=== PATIENT | male | born 1985 | race Caucasian/White ===

== ENCOUNTER → 2020-05-21 | Outpatient (CLI) | payer BC ==
[2020-05-21 11:39] LABS: ABSOLUTE LYMPHOCYTES (AUTO) 1.6 10^3/uL (0.5-4.7); ABSOLUTE MONOCYTES (AUTO) 0.3 10^3/uL (0.1-1.4); BASOPHILS % (AUTO) 0.5 % (0-2); HEMATOCRIT 49.7 % (37.9-51.0); LYMPHOCYTES % (AUTO) 40.5 % (13-45); MEAN CORPUSCULAR HEMOGLOBIN 31.7 pg (27.0-33.4); MEAN CORPUSCULAR HGB CONC 34.3 g/dL (32.0-36.0); MEAN CORPUSCULAR VOLUME 93 fl (80-97); MONOCYTES % (AUTO) 7.5 % (3-13); PLATELET COUNT 212 10^3/uL (150-450); RED BLOOD COUNT 5.36 10^6/uL (4.35-5.55); RED CELL DISTRIBUTION WIDTH 12.7 % (11.5-14.0); SEGMENTED NEUTROPHILS % (AUTO) 50.5 % (42-78); TOTAL CELLS COUNTED % (AUTO) 100 %
[2020-05-21 11:53] LABS: ALBUMIN 4.8 g/dL (3.5-5.0); ALKALINE PHOSPHATASE 38 U/L (38-126); ANION GAP 8 (5-19); ASPARTATE AMINO TRANSFERASE 35 U/L (17-59); BILIRUBIN,DIRECT 0.2 mg/dL (0.0-0.4); BILIRUBIN,TOTAL 0.6 mg/dL (0.2-1.3); BLOOD UREA NITROGEN 15 mg/dL (7-20); CALCIUM 9.3 mg/dL (8.4-10.2); CARBON DIOXIDE 30 mmol/L (22-30); CHLORIDE 102 mmol/L (98-107); CHOLESTEROL 165.69 mg/dL (0-200); GLUCOSE 97 mg/dL (75-110); POTASSIUM 4.8 mmol/L (3.6-5.0); TOTAL PROTEIN 7.7 g/dL (6.3-8.2); TRIGLYCERIDES 64 mg/dL (<150)
[2020-05-21 12:05] LABS: DIRECT LDL 103 mg/dL (<100)
== END ==
LOC: OD 10:35
PROVIDERS: ATTEND Psychiatry & Neurology Psychiatry
DX: F41.1 Generalized anxiety disorder (principal); F51.01 Primary insomnia; F90.2 Attention-deficit hyperactivity disorder, combined type; Z68.28 Body mass index [BMI] 28.0-28.9, adult; Z79.899 Other long term (current) drug therapy
CPT/HCPCS: 36415; 80053; 80061; 83036; 84443; 85025

== ENCOUNTER 2020-09-13 18:02 | Emergency (ER) | payer BC ==
[2020-09-13 18:11] VITALS: BP 176/94
--- NOTE | 2020-09-13 18:30 | ER Document Report ---
ED Medical Screen (RME) - General Stated Complaint: INVOLUNTERY TREMORS Time Seen by Provider: 09/13/20 18:18 Primary Care Provider: LUZMA SANON MD [Primary Care Provider] - Follow up as needed - [facility] Notes: 09/13/20 18:25 35-year-old male presents to the emergency room for complaints of chest discomfort to his left chest that radiated to his neck at approximately 1700 with a flushing feeling and shaking. This lasted for approximately an hour. He states he was in his garage moving around some things that office and he became very hot and started having the chest discomfort. Does not endorse a history of hypertension, states when they checked his blood pressure is 170/110. EMS stated that he had peaked T waves on his EKG. Denies any history of any cardiac issues. Reports that his mother did have a IA in her late 50s. Patient is not a smoker. Denies any preworkout supplements, states he does take a daily multivitamin for cardiovascular support. Patient does take Adderall for his ADHD. Patient states his chest discomfort has diminished. I have greeted and performed a rapid initial assessment of this patient. A comprehensive ED assessment and evaluation of the patient, analysis of test results and completion of the medical decision making process will be conducted by additional ED providers. PHYSICAL EXAMINATION: GENERAL: Well-appearing, well-nourished and in mild distress HEAD: Atraumatic, normocephalic. EYES: Pupils equal round extraocular movements intact, conjunctiva are normal. NECK: Normal range of motion CV: s1, s2 tachycardia LUNGS: Tachypnea, breath sounds clear on auscultation in all lobes Musculoskeletal: Normal range of motion NEUROLOGICAL: Normal speech, normal gait. SKIN: Warm, Dry, normal turgor, no rashes or lesions noted. The patient was evaluated during a global COVID-19 pandemic and that diagnosis was suspected/considered upon their initial presentation. Their evaluation, treatment and testing was consistent with current guidelines for patients who present with complaints or symptoms and may be related to COVID-19. 09/13/20 18:29 Physical Exam - Vital signs Vitals: Temp Pulse Resp BP Pulse Ox 97.6 F 112 H 16 176/94 H 100 09/13/20 18:06 09/13/20 18:06 09/13/20 18:06 09/13/20 18:06 09/13/20 18:06 Course - Vital Signs Vital signs: Temp Pulse Resp BP Pulse Ox 97.6 F 112 H 16 176/94 H 100 09/13/20 18:06 09/13/20 18:06 09/13/20 18:06 09/13/20 18:06 09/13/20 18:06 Doctor's Discharge - Discharge Referrals: LUZMA SANON MD [Primary Care Provider] - Follow up as needed
--- NOTE | 2020-09-13 19:01 | EKG REPORT ---
SEVERITY:- BORDERLINE ECG - SINUS RHYTHM NONSPECIFIC ST-T CHANGES- INFERIOR LEADS : Confirmed by: Curry Nava MD 13-Sep-2020 19:00:16
--- NOTE | 2020-09-13 19:17 | RADIOLOGY REPORT (SQ) ---
EXAM DESCRIPTION: CHEST SINGLE VIEW IMAGES COMPLETED DATE/TIME: 09/13/2020 5:59 pm REASON FOR STUDY: chest discomfort, sob, -covid. COMPARISON: None. EXAM PARAMETERS: NUMBER OF VIEWS: One view. TECHNIQUE: Single frontal radiographic view of the chest acquired. RADIATION DOSE: NA LIMITATIONS: None. FINDINGS: LUNGS AND PLEURA: No opacities, masses or pneumothorax. No pleural effusion. MEDIASTINUM AND HILAR STRUCTURES: No masses. Contour normal. HEART AND VASCULAR STRUCTURES: Heart normal in size. Normal vasculature. BONES: No acute findings. HARDWARE: None in the chest. OTHER: No other significant finding. IMPRESSION: NO ACUTE RADIOGRAPHIC FINDING IN THE CHEST. TECHNICAL DOCUMENTATION: JOB ID: [id number] [employer]- All Rights Reserved Reading location - IP/workstation name: [email or web address]
[2020-09-13 21:23] LABS: ABSOLUTE LYMPHOCYTES (AUTO) 1.4 10^3/uL (0.5-4.7); ABSOLUTE MONOCYTES (AUTO) 0.5 10^3/uL (0.1-1.4); ABSOLUTE NEUT (AUTO) 7.3 10^3/uL (1.7-8.2); BASOPHILS % (AUTO) 0.2 % (0-2); EOSINOPHILS % (AUTO) 0.1 % (0-6); HEMATOCRIT 43.9 % (37.9-51.0); HEMOGLOBIN 15.4 g/dL (13.5-17.0); LYMPHOCYTES % (AUTO) 15.6 % (13-45); MEAN CORPUSCULAR HEMOGLOBIN 32.1 pg (27.0-33.4); MEAN CORPUSCULAR VOLUME 92 fl (80-97); MONOCYTES % (AUTO) 5.3 % (3-13); PLATELET COUNT 227 10^3/uL (150-450); RED CELL DISTRIBUTION WIDTH 13.3 % (11.5-14.0); SEGMENTED NEUTROPHILS % (AUTO) 78.8 % (42-78); TOTAL CELLS COUNTED % (AUTO) 100 %; WHITE BLOOD COUNT 9.2 10^3/uL (4.0-10.5)
[2020-09-13 21:41] LABS: ALBUMIN 4.6 g/dL (3.5-5.0); ALKALINE PHOSPHATASE 50 U/L (38-126); ANION GAP 10 (5-19); ASPARTATE AMINO TRANSFERASE 34 U/L (17-59); BILIRUBIN,DIRECT 0.2 mg/dL (0.0-0.4); BILIRUBIN,TOTAL 0.5 mg/dL (0.2-1.3); BLOOD UREA NITROGEN 15 mg/dL (7-20); CALCIUM 9.5 mg/dL (8.4-10.2); CARBON DIOXIDE 26 mmol/L (22-30); CHLORIDE 104 mmol/L (98-107); CREATINE KINASE 298 U/L (55-170); GLUCOSE 95 mg/dL (75-110); TOTAL PROTEIN 7.4 g/dL (6.3-8.2)
[2020-09-13 21:54] LABS: CREATINE KINASE MB 3.16 ng/mL (<4.55)
[2020-09-13 21:57] LABS: TROPONIN I < 0.012 ng/mL
== END 2020-09-13 22:57 | disposition left against medical advice (07) ==
LOC: ER 18:02
DX: R07.9 Chest pain, unspecified (principal); R25.1 Tremor, unspecified
CPT/HCPCS: 36415; 71045; 80053; 82550; 82553; 83735; 84484; 85025; 93005; 93010; 99281